=== PATIENT | female | born 1940 | race Caucasian/White ===

== ENCOUNTER 2018-10-16 16:28 | Emergency (ER) | payer OTHER, MEDICARE ==
[2018-10-16 16:48] VITALS: TEMP 98; BMI 29.9
[2018-10-16] MEDS ORDERED: levETIRAcetam 500 MG/5 ML INJECTION VIAL IVPB ONE ×2 (18:59→19:07)
--- NOTE | 2018-10-16 19:02 | PDOC ---
Documentation entered by Tushar Yoder SCRIBE, acting as scribe for James Altamirano MD. James Altamirano MD: This documentation has been prepared by the Paresh hernandez Andrys, SCRIBE, under my direction and personally reviewed by me in its entirety. I confirm that the documentation accurately reflects all work, treatment, procedures, and medical decision making performed by me. History of Present Illness - General Chief Complaint: Injury Stated Complaint: FALL,LAC TO POSTERIOR HEAD History Source: Patient Exam Limitations: No Limitations - History of Present Illness Initial Comments: 10/16/18 16:44 The patient is a 77 year old female with a significant past medical history of Parkinsons, HTN, and anxiety who presents to the ED s/p fall earlier today. Patient states she was getting out of the car when she loss balance and fell backwards onto her head. Patient reports a headache that has since subsided. Patient also reports a laceration to the back of her head. Denies chest pain, SOB, neck pain or back pain. has not taken anything since fall. Patient states her last tetanus shot was 4 years ago. Denies loss of consciousness. Denies nausea or vomiting. 10/16/18 18:12 Past History - Past Medical History Allergies/Adverse Reactions: Allergies Allergy/AdvReac Type Severity Reaction Status Date / Time morphine AdvReac Intermediate Nausea Verified 10/16/18 16:43 Home Medications: Ambulatory Orders Amantadine Oral Solution [Symmetrel 50mg/mL Oral Solution -] 100 mg PO BID 07/26 Losartan Potassium 100 mg PO DAILY 07/26/13 Pramipexole Di-HCl [Pramipexole Dihydrochloride] 0.75 mg PO TID 07/26/13 Amlodipine Besylate 2.5 mg PO DAILY 10/16/18 Furosemide [Lasix] 20 mg PO DAILY 10/16/18 Sertraline HCl [Zoloft] 25 mg PO DAILY 10/16/18 Anemia: No Asthma: No Cancer: No Cardiac Disorders: No CVA: No COPD: No CHF: No Dementia: No Diabetes: No GI Disorders: No Disorders: No HTN: Yes Hypercholesterolemia: Yes Liver Disease: No Seizures: No Thyroid Disease: No - Surgical History Abdominal Surgery: No Appendectomy: No Cardiac Surgery: No Cholecystectomy: No Lung Surgery: No Neurologic Surgery: No Orthopedic Surgery: Yes (BACK SURGERY 2005) - Suicide/Smoking/Psychosocial Hx Smoking History: Former smoker Have you smoked in the past 12 months: No Number of Cigarettes Smoked Daily: 0 If you are a former smoker, when did you quit?: 1968 Hx Alcohol Use: No Drug/Substance Use Hx: No Substance Use Type: None Hx Substance Use Treatment: No Review of Systems - Review of Systems Able to Perform ROS?: Yes Comments:: 10/16/18 16:45 GENERAL/CONSTITUTIONAL: No fever or chills. No weakness. HEAD, EYES, EARS, NOSE AND THROAT: + headache. No change in vision. No ear pain or discharge. No sore throat. CARDIOVASCULAR: No chest pain or shortness of breath. RESPIRATORY: No cough, wheezing, or hemoptysis. GASTROINTESTINAL: No nausea, vomiting, diarrhea or constipation. GENITOURINARY: No dysuria, frequency, or change in urination. MUSCULOSKELETAL: No joint or muscle swelling or pain. No neck or back pain. SKIN: +laceration. No rash NEUROLOGIC: No headache, vertigo, loss of consciousness, or change in strength/ sensation. ENDOCRINE: No increased thirst. No abnormal weight change. HEMATOLOGIC/LYMPHATIC: No anemia, easy bleeding, or history of blood clots. ALLERGIC/IMMUNOLOGIC: No hives or skin allergy. *Physical Exam - Vital Signs Last Vital Signs Temp Pulse Resp BP Pulse Ox 98 F 82 17 158/92 97 10/16/18 16:43 10/16/18 16:43 10/16/18 16:43 10/16/18 16:43 10/16/18 16:43 - Physical Exam Comments: 10/16/18 16:45 GENERAL: Awake, alert, and fully oriented, in no acute distress HEAD: No signs of trauma EYES: PERRLA, EOMI, sclera anicteric, conjunctiva clear ENT: Auricles normal inspection, hearing grossly normal, nares patent, oropharynx clear without exudates. Moist mucosa NECK: Normal ROM, supple, no lymphadenopathy, JVD, or masses LUNGS: Breath sounds equal, clear to auscultation bilaterally. No wheezes, and no crackles HEART: Regular rate and rhythm, normal S1 and S2, no murmurs, rubs or gallops ABDOMEN: Soft, nontender, normoactive bowel sounds. No guarding, no rebound. No masses EXTREMITIES: Normal range of motion, no edema. No clubbing or cyanosis. No cords, erythema, or tenderness NEUROLOGICAL: + Tremors secondary to Parkinson's. Cranial nerves II through XII grossly intact. Normal speech, normal gait SKIN: + "upside down Y"-shaped laceration about 4cm, bleeding with swelling to the occipital area. Warm, Dry, normal turgor, no rashes noted. Procedures - Laceration/Wound Repair Posterior Head Wound Length: 2.6 to 5.0 cm Wound Explored: clean Wound's Depth, Shape: irregular (y shaped laceration 4 cm minimal bleeding with hematoma) Irrigated w/ Saline: Yes Wound Repaired With: [place] (9) Sterile Dressing Applied: Yes (Pt tolerated procedure well) ED Treatment Course - ADDITIONAL ORDERS Additional order review: 10/16/18 19:00 Patient with head injury, CT shows subarrachnoid hemorrahges Spoke with Neurosurgeon at [facility] Dr. Hoffmann, recommends transfer to [facility] Spoke with Dr. Leon at [facility], accepted patient to Neurosurgery service. Family in agreement with plan Transfer papers filled out. - RADIOLOGY Radiology Studies Ordered: Category Date Time Status HEAD CT WITHOUT CONTRAST [CT] Stat CT Scan 10/16/18 16:47 Taken Radiograph Interpretation: 10/16/18 18:[address] WITHOUT CONTRAST Impression: 1. No evidence of a depressed skull fracture. 2. Focal areas of subarachnoid hemorrhage noted bilaterally. Reported by: Imaging it communications manager Medical Decision Making - Medical Decision Making 10/16/18 18:[address] Chen at 18:51. *DC/Admit/Observation/Transfer Diagnosis at time of Disposition: Subarachnoid hemorrhage - Discharge Dispostion Disposition: TRANSFER ACUTE CARE/OTHER HOSP Condition at time of disposition: Stable Decision to Admit order: No - Referrals - Patient Instructions - Post Discharge Activity
[2018-10-16 20:50] VITALS: BP 174/99; PULSE 68
== END 2018-10-16 20:32 | disposition short-term general hospital (02) ==
LOC: FER 16:28
PROC: 3E0337Z Introduction of Electrolytic and Water Balance Substance into Peripheral Vein, Percutaneous Approach (ICD-10-PCS; principal; 2018-10-16)
PROC: 0HQ0XZZ Repair Scalp Skin, External Approach (ICD-10-PCS; 2018-10-16)
DX: I60.9 Nontraumatic subarachnoid hemorrhage, unspecified (principal); S01.91XA Laceration without foreign body of unspecified part of head, initial encounter; W18.39XA Other fall on same level, initial encounter; Y93.89 Activity, other specified; Y92.89 Other specified places as the place of occurrence of the external cause; Z87.891 Personal history of nicotine dependence; I10 Essential (primary) hypertension; E78.00 Pure hypercholesterolemia, unspecified
CPT/HCPCS: 70450-TC; 99284-25

== ENCOUNTER 2018-10-23 10:52 | Emergency (ER) | payer OTHER, MEDICARE ==
--- NOTE | 2018-10-23 11:03 | PDOC ---
Suture Removal/Wound Check HPI - History of Present Illness Chief Complaint: Suture/Staple Removal(Here) Stated Complaint: STAPLE REMOVAL FROM SCALP Time Seen by Provider: 10/23/18 10:58 History Source: Yes: Patient, Spouse, Old Records Exam Limitations: Yes: No Limitations Treated at: [facility] ED Date of Last ED visit: 10/16/18 - Previous ED Treatment Type of procedure performed on last visit: Yes: Laceration Repair Tetanus Immunization: Yes: Up to Date, Last Tetanus <5 years ago - Onset of Previous Treatment Date of Occurence: 10/16/18 Comment:: 10/23/18 11:04 Patient fell one week ago and was seen in our emergency department. Head CT showed subarachnoid hemorrhage. Patient was transferred to [facility] for trauma evaluation. She was admitted there and had serial CT scans as per her and herself. She was discharged in stable condition 5 days ago. Since that time she has had no complaints of headache, no cognitive changes, no gait changes, no new neurological symptoms. She is scheduled for a neurology follow-up appointment tomorrow. Past History - Past Medical History Allergies/Adverse Reactions: Allergies Allergy/AdvReac Type Severity Reaction Status Date / Time morphine AdvReac Intermediate Nausea Verified 10/16/18 16:43 Home Medications: Ambulatory Orders Amantadine Oral Solution [Symmetrel 50mg/mL Oral Solution -] 100 mg PO BID 07/26 Losartan Potassium 100 mg PO DAILY 07/26/13 Pramipexole Di-HCl [Pramipexole Dihydrochloride] 0.75 mg PO TID 07/26/13 Amlodipine Besylate 2.5 mg PO DAILY 10/16/18 Furosemide [Lasix] 20 mg PO DAILY 10/16/18 Sertraline HCl [Zoloft] 25 mg PO DAILY 10/16/18 Anemia: No Asthma: No Cancer: No Cardiac Disorders: No CVA: No COPD: No CHF: No Dementia: No Diabetes: No GI Disorders: No Disorders: No HTN: Yes Hypercholesterolemia: Yes Liver Disease: No Seizures: No Thyroid Disease: No - Surgical History Abdominal Surgery: No Appendectomy: No Cardiac Surgery: No Cholecystectomy: No Lung Surgery: No Neurologic Surgery: No Orthopedic Surgery: Yes (BACK SURGERY 2005) - Suicide/Smoking/Psychosocial Hx Smoking History: Former smoker Have you smoked in the past 12 months: No Number of Cigarettes Smoked Daily: 0 If you are a former smoker, when did you quit?: 1968 Hx Alcohol Use: No Drug/Substance Use Hx: No Substance Use Type: None Hx Substance Use Treatment: No Suture Removal/Wound Check PE - Physical Exam Laceration/Wound Check Symptoms: reports: None, Improved. denies: Pain, Fever, Chills, Redness, Discharge, Bleeding Pain Intensity: 0 Location of Laceration/Wound: right: Head (posterior scalp) Pain Radiation: None (wound healing well, no signs of infection patient awake, alert, ambulatory, stable gait, no headache or pain, no cognitive changes per spouse) Medical Decision Making - Medical Decision Making 10/23/18 11:06 77-year-old female status post fall with posterior scalp laceration requiring gene. She was treated in our ED on October [address] scan showed a subarachnoid hemorrhage. She was transferred to the trauma center and was admitted for serial CT scans. She was discharged approximately 5 days ago. She now presents for suture removal. There are no new neurological complaints. There is no complaint of headache. There is no complaint of focal deficit. On examination, she is awake and alert and ambulatory with stable gait. She is scheduled for neurology follow-up tomorrow. Gene 9 removed from the posterior scalp. No signs of infection. No bleeding. No swelling. Impression: Scalp laceration, healing well, Gene removed. Subarachnoid hemorrhage, stabilized at the trauma center, no new symptoms or ongoing symptoms, currently asymptomatic, scheduled for neurology appointment for follow-up tomorrow. *DC/Admit/Observation/Transfer Diagnosis at time of Disposition: Scalp laceration Qualifiers: Encounter type: initial encounter Qualified Code(s): S01.01XA - Laceration without foreign body of scalp, initial encounter - Discharge Dispostion Disposition: HOME Condition at time of disposition: Good Decision to Admit order: No - Referrals - Patient Instructions Printed Discharge Instructions: DI for Suture Removal, DI for Closed Head Injury Additional Instructions: Today you were evaluated for staple removal from your scalp laceration. The wound is healing well with no signs of any infection or other problems. All 9 gene were removed. You may now wash your hair gently as usual. You are advised to keep your follow up appointment with your neurologist as scheduled for tomorrow. Return to the emergency department for any new, severe, or progressive symptoms. - Post Discharge Activity
[2018-10-23 11:04] VITALS: BP 174/87; PULSE 79; TEMP 98.4; BMI 29.7
== END 2018-10-23 11:14 | disposition home or self-care (01) ==
LOC: FER 10:52 → SUPCPDRO 10:52 → FER 11:14
DX: Z48.02 Encounter for removal of sutures (principal)
CPT/HCPCS: 99281-25

== ENCOUNTER 2019-05-05 10:31 | Emergency (ER) | payer OTHER, MEDICARE ==
[2019-05-05 10:47] VITALS: BP 164/80; PULSE 81; TEMP 98.2; BMI 26.6
--- NOTE | 2019-05-05 10:58 | PDOC ---
Attending Attestation - Resident Resident Name: Sander Tolliver - HPI HPI: 05/05/19 18:38 Pt presents to the ED complaining of atraumatic R shoulder pain. Denies other complaints. - Physicial Exam PE: 05/05/19 18:47 Agree with resident exam. Patient is alert and oriented and in no acute distress. R shoulder: no tenderness, deformity or ecchymosis. No pain with passive ROM. slightly limited abduction but otherwise normal ROM. - Medical Decision Making 05/05/19 18:50 Pt presents to the ED complaining of atraumatic R shoulder pain. differential includes arthritis, rotator cuff tear, other muscular pain. XRAy negative for acute findings. Will discharge home. 05/05/19 18:51
--- NOTE | 2019-05-05 11:34 | PDOC ---
History of Present Illness - General Chief Complaint: Pain, Acute Stated Complaint: RIGHT SHOULDER PAIN Time Seen by Provider: 05/05/19 10:58 History Source: Patient Exam Limitations: No Limitations - History of Present Illness Initial Comments: 05/05/19 11:53 78 yo F with a hx of Parkinson's, OA, HTN, HLD, and traumatic SAH 09/2018 presents to the emergency department with right shoulder pain that has been ongoing for 5 days. Per the patient, she states she did not fall and recently transitioned from the cane to a walker. She is right hand dominant and relies on her right shoulder for stabilization while ambulating. Denies the following: fevers, chills, chest pain, SOB, nausea, vomiting, abdominal pain, dysuria, hematuria, diarrhea, and visual disturbances. Denies headaches, FND, lightheadedness/dizziness, and unstable gait. She sates her shoulder hurts when she engaged in abduction, but denies pain while at rest. The pain is described as a sharp sensation, located in the anterior and lateral aspect of the right shoulder. She has not taken medications for pain relief. Allergies: Morphine Past History - Past Medical History Allergies/Adverse Reactions: Allergies Allergy/AdvReac Type Severity Reaction Status Date / Time morphine AdvReac Intermediate Nausea Verified 05/05/19 10:36 Home Medications: Ambulatory Orders Amantadine Oral Solution [Symmetrel 50mg/mL Oral Solution -] 100 mg PO BID 07/26/13 Losartan Potassium 100 mg PO DAILY 07/26/13 Pramipexole Di-HCl [Pramipexole Dihydrochloride] 0.75 mg PO TID 07/26/13 Amlodipine Besylate 2.5 mg PO DAILY 10/16/18 Furosemide [Lasix] 20 mg PO DAILY 10/16/18 Sertraline HCl [Zoloft] 25 mg PO DAILY 10/16/18 Anemia: No Asthma: No Cancer: No Cardiac Disorders: No CVA: No COPD: No CHF: No Dementia: No Diabetes: No GI Disorders: No Disorders: No HTN: Yes Hypercholesterolemia: Yes Liver Disease: No Seizures: No Thyroid Disease: No Other medical history: PARKINSONS - Surgical History Abdominal Surgery: No Appendectomy: No Cardiac Surgery: No Cholecystectomy: No Lung Surgery: No Neurologic Surgery: No Orthopedic Surgery: Yes (BACK SURGERY 2005) - Psycho Social/Smoking Cessation Hx Smoking History: Former smoker Have you smoked in the past 12 months: No Number of Cigarettes Smoked Daily: 0 If you are a former smoker, when did you quit?: 1968 Information on smoking cessation initiated: Yes Hx Alcohol Use: No Drug/Substance Use Hx: No Substance Use Type: None Hx Substance Use Treatment: No Review of Systems - Review of Systems Able to Perform ROS?: Yes Is the patient limited Faroese proficient: No Constitutional: No: Chills, Diaphoresis, Fever, Weakness HEENTM: No: Eye Pain, Ear Pain, Nose Pain, Throat Pain, Mouth Pain Respiratory: No: Cough, Shortness of Breath, Hemoptysis Cardiac (ROS): No: Chest Pain, Lightheadedness, Palpitations, Chest Tightness ABD/GI: No: Constipated, Diarrhea, Nausea, Poor Appetite, Poor Fluid Intake, Rectal Bleeding, Vomiting, Tarry Stools : No: Burning, Dysuria, Hematuria Musculoskeletal: Yes: Joint Pain (right shoulder). No: Back Pain, Neck Pain Integumentary: No: Bruising, Erythema, Rash Neurological: No: Headache, Numbness, Tingling, Tremors Psychiatric: No: Change in Appetite Endocrine: No: Unexplained Weight Loss Hematologic/Lymphatic: No: Anemia *Physical Exam - Vital Signs Last Vital Signs Temp Pulse Resp BP Pulse Ox 98.2 F 81 19 164/80 98 05/05/19 10:32 05/05/19 10:32 05/05/19 10:32 05/05/19 10:32 05/05/19 10:32 - Physical Exam General Appearance: Yes: Nourished, Appropriately Dressed. No: Apparent Distress, Intoxicated HEENT: positive: EOMI, STEPH, Normal Voice, Symmetrical, Pharynx Normal, Hearing Grossly Normal. negative: Pale Conjunctivae, Scleral Icterus (R), Scleral Icterus (L), Muffled/Hoarse voice, Pharyngeal Erythema, Tonsillar Exudate, Tonsillar Erythema, Nasal Congestion, Rhinorrhea, Sinus Tenderness, Excessive drooling Neck: positive: Trachea midline, Supple. negative: Tender, Lymphadenopathy (R), Lymphadenopathy (L), Tender lateral, Tender midline Respiratory/Chest: positive: Lungs Clear, Normal Breath Sounds. negative: Chest Tender, Respiratory Distress, Accessory Muscle Use Cardiovascular: positive: Regular Rhythm, Regular Rate, S1, S2. negative: Systolic Murmur Gastrointestinal/Abdominal: positive: Normal Bowel Sounds, Flat, Soft. negative: Tender Lymphatic: negative: Adenopathy Musculoskeletal: positive: Normal Inspection, Decreased Range of Motion (right shoulder.). negative: CVA Tenderness, Vertebral Tenderness Extremity: positive: Normal Capillary Refill, Normal Inspection, Pelvis Stable. negative: Normal Range of Motion (pain with active ROM of the shoulder. No pain with passive ROM. grinding appreciated with passive ROM), Tender, Swelling, Calf Tenderness Integumentary: positive: Normal Color, Dry, Warm Neurologic: positive: call centre supervisor II-XII NML intact, Fully Oriented, Alert, Normal Mood/Affect, Normal Response, Motor Strength 07/03 ED Treatment Course - RADIOLOGY Radiology Studies Ordered: Category Date Time Status SHOULDER-RIGHT [RAD] Stat Radiology 05/05/19 11:07 Taken Medical Decision Making - Medical Decision Making 78 yo F with a hx of Parkinson's, OA, HTN, HLD, and traumatic SAH 09/2018 presents to the emergency department with right shoulder pain that has been ongoing for 5 days. Initial vitals: Initial Vital Signs Temp Pulse Resp BP Pulse Ox 98.2 F 81 19 164/80 98 05/05/19 10:32 05/05/19 10:32 05/05/19 10:32 05/05/19 10:32 05/05/19 10:32 Work up: patient presents to the emergency department with right shoulder pain the pain is non existent when at rest and occurs with ROM. Denies weakness and is able to hold her arm when placed in flexion. The patient likely is having OA of the right shoulder exacerbated by recent overuse due to using new transportation means. The patient has not taken analgesics to help with the pain. WIll rule out fracture/dislocation with xray. Xray negative for fx/dislocation. patient given ibuprofen 400 mg. Likely the patient is having OA pain. Advised the patient to take aleeve as directed on the label and to follow up w ith the primary medical doctor within 1 week after discharge. Dispo: Discharge Discharge - Discharge Information Problems reviewed: Yes Clinical Impression/Diagnosis: Right shoulder pain Condition: Stable Disposition: HOME - Admission No - Follow up/Referral Referrals: María Elena Chavez MD [Primary Care Provider] - - Patient Discharge Instructions Patient Printed Discharge Instructions: DI for Shoulder Pain Additional Instructions: You were seen for the evaluation of your shoulder pain. Your xray was negative. Please follow up with your primary medical doctor within 1 week after discharge for follow up care and management. Please return to the emergency department if you have worsening symptoms or new concerning symptoms. Thank you. Please take aleeve as directed on the label for pain. - Post Discharge Activity
[2019-05-05] MEDS ORDERED: IBUPROFEN 400 MG TABLET (FP) PO ONE ×2 (11:44→11:48)
== END 2019-05-05 12:09 | disposition home or self-care (01) ==
LOC: FER 10:31
DX: M25.511 Pain in right shoulder (principal); Z88.6 Allergy status to analgesic agent; Z87.891 Personal history of nicotine dependence; G20 Parkinson's disease; E78.00 Pure hypercholesterolemia, unspecified; I10 Essential (primary) hypertension
CPT/HCPCS: 73030-TC-RT-FY; 99283-25

== ENCOUNTER 2020-01-21 16:57 | Emergency (ER) | payer OTHER, MEDICARE ==
[2020-01-21 17:02] VITALS: BP 125/67; PULSE 74; TEMP 99.2; BMI 22.4
[2020-01-21] MEDS ORDERED: DIPHTH,PERTUSS(ACELL),TET 0.5 ML DISP.SYRIN IM ONE ×2 (17:51→19:37)
[2020-01-21 19:21] LABS: EPITHELIAL CELLS MODERATE /hpf
== END 2020-01-21 19:51 | disposition home or self-care (01) ==
LOC: FER 16:57
PROC: 3E0234Z Introduction of Serum, Toxoid and Vaccine into Muscle, Percutaneous Approach (ICD-10-PCS; principal; 2020-01-21)
DX: S09.90XA Unspecified injury of head, initial encounter (principal); S01.01XA Laceration without foreign body of scalp, initial encounter
CPT/HCPCS: 70450-TC; 72125-TC; 73030-TC-RT-FY; 81003; 81015; 87086; 90715; 93005; 99285-25

== ENCOUNTER 2020-01-30 12:00 | Emergency (ER) | payer OTHER, MEDICARE ==
[2020-01-30 12:07] VITALS: BP 125/67; PULSE 79; TEMP 99.3
== END 2020-01-30 12:42 | disposition home or self-care (01) ==
LOC: FER 12:00
DX: Z48.02 Encounter for removal of sutures (principal)
CPT/HCPCS: 99282-25

== ENCOUNTER 2020-09-08 12:35 | Inpatient (IN) | payer OTHER, MEDICARE ==
[2020-09-08] MEDS ORDERED: morphine CARPU-JECT 2 MG/1 ML DISP.SYRIN IVPUSH ONE (13:37)
[2020-09-08] MEDS ORDERED: ACETAMINOPHEN INJECTION 100 ML IVPB ONE (14:58)
[2020-09-08 15:08] LABS: MCHC 33.8 g/dl (32.0-36.0)
[2020-09-08] MEDS ORDERED: ACETAMINOPHEN 1000 MG/100 ML VIAL (NON FORMULARY) IVPB ONE (15:10)
[2020-09-08 15:15] LABS: BASO % 0.8 % (0-2.0); EOS % 0.8 % (0-4.5); HEMATOCRIT 36.9 % (32.4-45.2); HEMOGLOBIN 12.5 GM/dl (10.7-15.3); LYMPH % 16.5 % (8-40); MCH 31.5 pg (25.7-33.7); MEAN CELL VOLUME 93.3 fl (80-96); MEAN PLT VOLUME 8.5 fl (7.5-11.1); MONO % 5.9 % (3.8-10.2); PLATELET COUNT 142 10^3/uL (134-434); RBC 3.96 M/mm3 (3.60-5.2); RDW 13.3 % (11.6-15.6); WHITE BLOOD COUNT 7.7 K/mm3 (4.0-10.8)
[2020-09-08 15:18] LABS: ANION GAP 11 MMOL/L (8-16); BILIRUBIN,TOTAL 1.3 mg/dl (0.2-1); CALCIUM 9.3 mg/dl (8.5-10); CHLORIDE 99 mmol/L (98-107); CO2 26 mmol/L (21-32); CREATININE 0.8 mg/dl (0.55-1.3); GLUCOSE,RANDOM 104 mg/dl (74-106); SGOT/AST 19 U/L (15-37); SGPT/ALT 5 U/L (13-61); SODIUM 136 mmol/L (136-145)
[2020-09-08 15:19] LABS: ALK PHOS 57 U/L (45-117); TOT PROT 6.7 g/dl (6.4-8.2)
[2020-09-08 15:20] LABS: ACTIVATED PTT 26.1 SECONDS (25.2-36.5)
[2020-09-08 15:24] LABS: INR 0.99 (0.82-1.09); PROTHROMBIN TIME (PATIENT) 11.1 SEC (10.2-13.0)
[2020-09-08] MEDS ORDERED: MIDAZOLAM HCL 2 MG/2 ML SINGLE DOSE VIAL IVPUSH ONE (16:03)
[2020-09-08] MEDS ORDERED: KETAMINE HCL 200 MG/20 ML VIAL IVPUSH ONE (16:03)
[2020-09-08] MEDS ORDERED: KETAMINE HCL 200 MG/20 ML VIAL ONE (16:11)
[2020-09-08] MEDS ORDERED: MIDAZOLAM HCL 2 MG/2 ML SINGLE DOSE VIAL ONE (16:11)
[2020-09-08] MEDS ORDERED: hydrALAZINE HCL 20 MG/ML VIAL IVPUSH ONE (19:00)
[2020-09-08] MEDS: amLODIPine BESYLATE 10 MG TABLET (FP) PO SCH (19:21)
[2020-09-08] MEDS ORDERED: traMADol HCL 50 MG TABLET PO PRN (20:34)
[2020-09-08] MEDS ORDERED: ACETAMINOPHEN 325 MG TABLET (FP) PO PRN (21:04)
[2020-09-08] MEDS: MIRTAZAPINE 15 MG TABLET (FP) PO SCH (21:45)
[2020-09-08] MEDS ORDERED: DONEPEZIL HCL 10 MG TABLET (FP) PO SCH (22:00)
[2020-09-08] MEDS ORDERED: PATIENT'S OWN MEDICATION (NON-FORMULARY) (Mirtazapine [Mirtazapine] 7.5 MG Tablet) PO SCH (22:00)
[2020-09-08] MEDS: CARBIDOPA/LEVODOPA 25/100 TABLET (FP) PO SCH (22:55)
[2020-09-09 05:10] LABS: BASO % 0.5 % (0-2.0); HEMATOCRIT 36.7 % (32.4-45.2); HEMOGLOBIN 12.5 GM/dL (10.7-15.3); LYMPH % 17.2 % (8-40); MCH 31.6 pg (25.7-33.7); MEAN CELL VOLUME 92.8 fl (80-96); MEAN PLT VOLUME 8.9 fl (7.5-11.1); MONO % 6.6 % (3.8-10.2); NEUT % 74.7 % (42.8-82.8); PLATELET COUNT 134 10^3/uL (134-434); RBC 3.95 M/mm3 (3.60-5.2); RDW 14.2 % (11.6-15.6); WHITE BLOOD COUNT 7.1 K/mm3 (4.0-10.0)
[2020-09-09 05:29] LABS: CHLORIDE 106 mmol/L (98-107); SODIUM 141 mmol/L (136-145)
[2020-09-09 05:31] LABS: ALBUMIN 3.5 g/dl (3.4-5.0); ANION GAP 7 MMOL/L (8-16); BLOOD UREA NITROGEN 22.2 mg/dL (7-18); CALCIUM 8.6 mg/dL (8.5-10.1); CO2 28 mmol/L (21-32); GLUCOSE,RANDOM 87 mg/dL (74-106)
[2020-09-09 05:34] LABS: CREATININE 0.6 mg/dL (0.55-1.3); SGOT/AST 32 U/L (15-37); SGPT/ALT 12 U/L (13-61)
[2020-09-09 05:36] LABS: BILIRUBIN,TOTAL 0.9 mg/dL (0.2-1); TOT PROT 6.3 g/dl (6.4-8.2)
[2020-09-09 05:37] LABS: ALK PHOS 65 U/L (45-117)
[2020-09-09] MEDS: CARBIDOPA/LEVODOPA 25/100 TABLET (FP) PO SCH ×3 (07:00→21:23)
[2020-09-09] MEDS: amLODIPine BESYLATE 10 MG TABLET (FP) PO SCH (09:58)
[2020-09-09] MEDS: SERTRALINE HCL 50 MG TABLET (FP) PO SCH (09:58)
[2020-09-09] MEDS ORDERED: FLUDROCORTISONE ACETATE 0.1 MG TABLET (FP) PO SCH (10:00)
[2020-09-09] MEDS ORDERED: PT OWN MED DRAWER 7, Y5N ONE ×3 (14:00→21:12)
[2020-09-09] MEDS ORDERED: HALOPERIDOL 1 MG TABLET PO ONE (15:44)
[2020-09-09] MEDS: MEMANTINE HCL 5 MG TABLET (UD) PO SCH (16:24)
[2020-09-09] MEDS: MIRTAZAPINE 15 MG TABLET (FP) PO SCH (21:23)
[2020-09-09] MEDS: HEPARIN NA (PORCINE) 5,000 UNITS/ML 1ML VIAL SQ SCH (21:24)
[2020-09-10] MEDS ORDERED: PT OWN MED DRAWER 7, Y5N ONE ×4 (05:18→21:27)
[2020-09-10] MEDS: HEPARIN NA (PORCINE) 5,000 UNITS/ML 1ML VIAL SQ SCH ×3 (05:21→21:25)
[2020-09-10] MEDS: CARBIDOPA/LEVODOPA 25/100 TABLET (FP) PO SCH ×3 (05:21→21:28)
[2020-09-10 08:14] LABS: HEMATOCRIT 36.6 % (32.4-45.2); HEMOGLOBIN 12.3 GM/dL (10.7-15.3); MCH 31.1 pg (25.7-33.7); MCHC 33.6 g/dl (32.0-36.0); MEAN CELL VOLUME 92.5 fl (80-96); PLATELET COUNT 146 10^3/uL (134-434); RBC 3.96 M/mm3 (3.60-5.2); RDW 14.1 % (11.6-15.6); WHITE BLOOD COUNT 6.5 K/mm3 (4.0-10.0)
[2020-09-10 08:51] LABS: BLOOD UREA NITROGEN 19.1 mg/dL (7-18)
[2020-09-10 08:52] LABS: CALCIUM 8.9 mg/dL (8.5-10.1)
[2020-09-10 08:53] LABS: ALBUMIN 3.5 g/dl (3.4-5.0); MAGNESIUM 1.7 mg/dL (1.8-2.4)
[2020-09-10 08:54] LABS: CREATININE 0.6 mg/dL (0.55-1.3)
[2020-09-10 08:56] LABS: TOT PROT 6.4 g/dl (6.4-8.2)
[2020-09-10 08:57] LABS: PHOSPHOROUS 2.8 mg/dL (2.5-4.9)
[2020-09-10] MEDS ORDERED: LISINOPRIL 10 MG TABLET PO SCH ×2 (09:00→12:00)
[2020-09-10] MEDS ORDERED: MAGNESIUM OXIDE 400 MG TABLET (FP) PO ONE (09:51)
[2020-09-10] MEDS: amLODIPine BESYLATE 10 MG TABLET (FP) PO SCH (10:15)
[2020-09-10] MEDS: SERTRALINE HCL 50 MG TABLET (FP) PO SCH (10:15)
[2020-09-10] MEDS: MEMANTINE HCL 5 MG TABLET (UD) PO SCH (10:16)
[2020-09-10 14:30] VITALS: BMI 17.9
[2020-09-10] MEDS: MIRTAZAPINE 15 MG TABLET (FP) PO SCH (21:25)
[2020-09-11 03:31] LABS: EPI CELLS 4 /uL (0-25.1); HYALINE CASTS 0 /uL (0-3.1); PH,URINE 6.5 (5.0-8.0); URINE APPEARANCE CLEAR; URINE BACTERIA 9 /uL (0-1359); URINE BILIRUBIN NEGATIVE (NEGATIVE); URINE COLOR YELLOW; URINE GLUCOSE (UA) NEGATIVE (NEGATIVE); URINE KETONE NEGATIVE (NEGATIVE); URINE LEUK ESTERASE NEGATIVE (NEGATIVE); URINE NITRITE NEGATIVE (NEGATIVE); URINE PROTEIN 2+ (NEGATIVE); URINE RBC 10 /uL (0-23.9); URINE UROBILINOGEN 0.2 mg/dL (0.2-1.0); URINE WBC 2 /uL (0-25.8)
[2020-09-11 05:41] VITALS: TEMP 97.6
[2020-09-11] MEDS: HEPARIN NA (PORCINE) 5,000 UNITS/ML 1ML VIAL SQ SCH ×2 (06:07→13:48)
[2020-09-11] MEDS: CARBIDOPA/LEVODOPA 25/100 TABLET (FP) PO SCH ×2 (06:07→13:48)
[2020-09-11 07:49] LABS: HEMATOCRIT 35.4 % (32.4-45.2); MCH 31.3 pg (25.7-33.7); MCHC 33.9 g/dl (32.0-36.0); MEAN CELL VOLUME 92.1 fl (80-96); MEAN PLT VOLUME 8.7 fl (7.5-11.1); PLATELET COUNT 148 10^3/uL (134-434); RBC 3.84 M/mm3 (3.60-5.2); RDW 14.2 % (11.6-15.6); WHITE BLOOD COUNT 6.4 K/mm3 (4.0-10.0)
[2020-09-11 08:09] LABS: ALBUMIN 3.5 g/dl (3.4-5.0); BLOOD UREA NITROGEN 20.6 mg/dL (7-18); CALCIUM 8.9 mg/dL (8.5-10.1); MAGNESIUM 1.7 mg/dL (1.8-2.4)
[2020-09-11 08:12] LABS: CREATININE 0.6 mg/dL (0.55-1.3); PHOSPHOROUS 2.9 mg/dL (2.5-4.9)
[2020-09-11 08:13] LABS: BILIRUBIN,TOTAL 0.9 mg/dL (0.2-1)
[2020-09-11 08:14] LABS: TOT PROT 6.4 g/dl (6.4-8.2)
[2020-09-11 09:50] VITALS: BP 147/84; PULSE 64
[2020-09-11] MEDS ORDERED: SILVER SULFADIAZINE 1% TOP CREAM 50 GM JAR TP SCH (10:00)
[2020-09-11] MEDS ORDERED: LISINOPRIL 10 MG TABLET PO SCH (10:00)
[2020-09-11] MEDS ORDERED: MULTIVITAMINS (DAILY MVI) TABLET (FP) PO SCH (10:00)
[2020-09-11] MEDS: SERTRALINE HCL 50 MG TABLET (FP) PO SCH (11:29)
[2020-09-11] MEDS: MEMANTINE HCL 5 MG TABLET (UD) PO SCH (11:29)
[2020-09-11] MEDS: amLODIPine BESYLATE 10 MG TABLET (FP) PO SCH (11:30)
[2020-09-11] MEDS ORDERED: PT OWN MED DRAWER 7, Y5N ONE (14:01)
== END 2020-09-11 17:38 | DRG 559 ==
LOC: FER 12:35 → FM/S 17:54 → J4W 09-09 02:40
PROVIDERS: ADMIT Internal Medicine; ATTEND Internal Medicine
PROC: 0SSBXZZ Reposition Left Hip Joint, External Approach (ICD-10-PCS; principal; 2020-09-08)
DX: T84.021A Dislocation of internal left hip prosthesis, initial encounter (principal); E43 Unspecified severe protein-calorie malnutrition; Z68.1 Body mass index [BMI] 19.9 or less, adult; R64 Cachexia; Y83.8 Other surgical procedures as the cause of abnormal reaction of the patient, or of later complication, without mention of misadventure at the time of the procedure; G20 Parkinson's disease; I10 Essential (primary) hypertension; R00.1 Bradycardia, unspecified; F03.90 Unspecified dementia, unspecified severity, without behavioral disturbance, psychotic disturbance, mood disturbance, and anxiety; R91.1 Solitary pulmonary nodule; F41.9 Anxiety disorder, unspecified; I25.119 Atherosclerotic heart disease of native coronary artery with unspecified angina pectoris; R55 Syncope and collapse; L98.8 Other specified disorders of the skin and subcutaneous tissue; E83.42 Hypomagnesemia; W18.30XA Fall on same level, unspecified, initial encounter; Y92.098 Other place in other non-institutional residence as the place of occurrence of the external cause
CPT/HCPCS: 36415; 70450-TC; 71045-TC-FY; 72125-TC; 73502-TC-LT-FY; 73523-TC-FY; 73630-TC-LT; 80053; 81003; 82550; 82553; 83735; 84100; 84439; 84443; 84484; 85025; 85027; 85610; 85730; 93005; 93010; 93306-TC; 97116-GP; 97162-GP; 99285-25; C9803; J0131; J1644; U0003; U0005

== ENCOUNTER 2020-09-24 23:42 | Inpatient (IN) | payer OTHER, MEDICARE ==
[2020-09-25 01:32] LABS: BASO % 0.6 % (0-2.0); EOS % 0.4 % (0-4.5); HEMATOCRIT 31.7 % (32.4-45.2); LYMPH % 25.5 % (8-40); MCH 32.4 pg (25.7-33.7); MCHC 34.7 g/dl (32.0-36.0); MEAN CELL VOLUME 93.3 fl (80-96); MEAN PLT VOLUME 8.1 fl (7.5-11.1); MONO % 8.1 % (3.8-10.2); NEUT % 65.4 % (42.8-82.8); PLATELET COUNT 251 10^3/uL (134-434); RBC 3.39 M/mm3 (3.60-5.2); WHITE BLOOD COUNT 7.6 K/mm3 (4.0-10.0)
[2020-09-25 01:40] LABS: PROTHROMBIN TIME (PATIENT) 12.1 SEC (9.7-13.0)
[2020-09-25 01:43] LABS: ACTIVATED PTT 43.3 SECONDS (25.2-36.5)
[2020-09-25 01:57] LABS: CALCIUM 9.5 mg/dL (8.5-10.1)
[2020-09-25 01:58] LABS: ALBUMIN 3.1 g/dl (3.4-5.0)
[2020-09-25 02:00] LABS: CREATININE 0.8 mg/dL (0.55-1.3)
[2020-09-25 02:02] LABS: BILIRUBIN,TOTAL 0.6 mg/dL (0.2-1); TOT PROT 6.2 g/dl (6.4-8.2)
[2020-09-25 02:08] LABS: BLOOD UREA NITROGEN 48.6 mg/dL (7-18)
[2020-09-25] MEDS ORDERED: DEXTROSE 5%-NORMAL SALINE 1,000 ML IV SCH ×2 (06:30→12:04)
[2020-09-25] MEDS ORDERED: ACETAMINOPHEN 1000 MG/100 ML VIAL (NON FORMULARY) IVPB PRN (06:42)
[2020-09-25] MEDS ORDERED: ONDANSETRON 4 MG/2 ML VIAL IVPUSH PRN ×2 (11:10→12:04)
[2020-09-25] MEDS ORDERED: LACTATED RINGERS SOLUTION 1,000 ML IV SCH (11:15)
[2020-09-25] MEDS: ACETAMINOPHEN 1000 MG/100 ML VIAL (NON FORMULARY) IVPB PRN ×2 (17:08→23:39)
[2020-09-26 07:42] LABS: CHLORIDE 114 mmol/L (98-107); SODIUM 145 mmol/L (136-145)
[2020-09-26 07:46] LABS: ANION GAP 6 MMOL/L (8-16); CO2 24 mmol/L (21-32)
[2020-09-26 07:47] LABS: BLOOD UREA NITROGEN 31.5 mg/dL (7-18); CALCIUM 8.1 mg/dL (8.5-10.1)
[2020-09-26 07:50] LABS: CREATININE 0.8 mg/dL (0.55-1.3)
[2020-09-26 07:51] LABS: GLUCOSE,RANDOM 433 mg/dL (74-106)
[2020-09-26 10:20] LABS: HEMOGLOBIN 11.1 GM/dL (10.7-15.3); MCH 32.5 pg (25.7-33.7); MCHC 34.8 g/dl (32.0-36.0); MEAN CELL VOLUME 93.4 fl (80-96); PLATELET COUNT 229 10^3/uL (134-434); RBC 3.42 M/mm3 (3.60-5.2); RDW 13.5 % (11.6-15.6); WHITE BLOOD COUNT 8.2 K/mm3 (4.0-10.0)
[2020-09-26] MEDS: MEMANTINE HCL 5 MG TABLET (UD) PO SCH (10:29)
[2020-09-26] MEDS: LISINOPRIL 10 MG TABLET PO SCH (10:29)
[2020-09-26] MEDS: amLODIPine BESYLATE 10 MG TABLET (FP) PO SCH (10:29)
[2020-09-26] MEDS: INSULIN SLIDING SCALE (NOVOLOG) 1 VIAL SQ SCH ×3 (12:07→22:00)
[2020-09-26] MEDS ORDERED: POTASSIUM CHLORIDE 10 MEQ in SODIUM CHLORIDE 0.45% 1,000 ML IVPB SCH (13:00)
[2020-09-26] MEDS ORDERED: PT OWN MED DRAWER 7, Y5N ONE ×3 (14:13→21:21)
[2020-09-26] MEDS: CARBIDOPA/LEVODOPA 25/100 TABLET (FP) PO SCH ×2 (17:29→22:03)
[2020-09-26] MEDS ORDERED: MIRTAZAPINE 15 MG TABLET (FP) PO SCH (22:00)
[2020-09-27] MEDS ORDERED: INSULIN (NOVOLOG) ASPART 100 UNITS/ML 10ML VIAL ONE (05:02)
[2020-09-27] MEDS: CARBIDOPA/LEVODOPA 25/100 TABLET (FP) PO SCH (06:05)
[2020-09-27] MEDS: INSULIN SLIDING SCALE (NOVOLOG) 1 VIAL SQ SCH ×2 (06:47→11:42)
[2020-09-27] MEDS: LISINOPRIL 10 MG TABLET PO SCH (09:36)
[2020-09-27] MEDS: amLODIPine BESYLATE 10 MG TABLET (FP) PO SCH (09:36)
[2020-09-27] MEDS: MEMANTINE HCL 5 MG TABLET (UD) PO SCH (09:36)
[2020-09-27 12:00] VITALS: BP 154/89; PULSE 70; TEMP 98.3
[2020-09-27 13:48] VITALS: BMI 17.4
== END 2020-09-27 12:00 | DRG 560 ==
LOC: JER 23:42 → JERBED 09-25 05:56 → J4W 09-25 15:30
PROVIDERS: ADMIT Internal Medicine; ATTEND Family Medicine
PROC: 0SWEXJZ Revision of Synthetic Substitute in Left Hip Joint, Acetabular Surface, External Approach (ICD-10-PCS; 2020-09-25)
PROC: 0SWSXJZ Revision of Synthetic Substitute in Left Hip Joint, Femoral Surface, External Approach (ICD-10-PCS; principal; 2020-09-25 10:00)
PROC: 0QS Lower Bones, Reposition (ICD-10-PCS; 2020-09-25 10:00)
DX: T84.021A Dislocation of internal left hip prosthesis, initial encounter (principal); E44.0 Moderate protein-calorie malnutrition; Z68.1 Body mass index [BMI] 19.9 or less, adult; Y83.9 Surgical procedure, unspecified as the cause of abnormal reaction of the patient, or of later complication, without mention of misadventure at the time of the procedure; Y92.89 Other specified places as the place of occurrence of the external cause; F03.90 Unspecified dementia, unspecified severity, without behavioral disturbance, psychotic disturbance, mood disturbance, and anxiety; G20 Parkinson's disease; I10 Essential (primary) hypertension; R00.1 Bradycardia, unspecified; E11.9 Type 2 diabetes mellitus without complications; I25.10 Atherosclerotic heart disease of native coronary artery without angina pectoris; R79.89 Other specified abnormal findings of blood chemistry; E86.0 Dehydration; T84.021D Dislocation of internal left hip prosthesis, subsequent encounter; W19.XXXA Unspecified fall, initial encounter; Y93.9 Activity, unspecified; Y99.9 Unspecified external cause status
CPT/HCPCS: 36415; 70450-TC; 72125-TC; 72170-TC-FY; 73552-TC-LT-FY; 80048; 80053; 82962; 83036; 84443; 84484; 85025; 85027; 85610; 85730; 86850; 86900; 86901; 93005; 93010; 94760; 99285-25; C9803; J0131; U0003; U0005